=== PATIENT | female | born 1960 | race Caucasian/White ===

== ENCOUNTER 2016-12-14 19:07 | Emergency (ER) | payer MEDICAID ==
[~2016-12-14] VITALS: Ht 172.7 cm; Wt 110.1 kg
[~2016-12-14 19:07] MED LIST: AMLO5TAB2 PO; AMOX-291 PO; ASPI-650 PO; ATOR20TA PO; CARV6.2512 PO; CARV6.252 PO; GLIP2.5T3 PO; GLIP5TAB10 PO; HYDR-3341 PO; HYDR-3342 PO; HYDR-3343 PO; HYDR-882 PO; IBUP800T PO; LISI-170 PO; METH500T97 PO; NICO1PAT10 TD; OXYC5SOL8 PO; OXYC5TAB3 PO; POLY17PO5 PO; SERT50TA5 PO
[2016-12-14 19:19] VITALS: BP 171/103
[2016-12-14] MEDS ORDERED: KETOROLAC 60 MG/2 ML IM ONE (20:00)
[2016-12-14] MEDS ORDERED: KETOROLAC 30 MG/1 ML ONE (20:02)
== END 2016-12-14 20:14 | disposition home or self-care (01) ==
LOC: ED 20:08
DX: M54.9 Dorsalgia, unspecified (principal); G89.29 Other chronic pain; M19.90 Unspecified osteoarthritis, unspecified site; E11.9 Type 2 diabetes mellitus without complications
CPT/HCPCS: 93005; 96372; 99283; J1885

== ENCOUNTER 2017-01-17 20:28 | Emergency (ER) | payer MEDICAID ==
[~2017-01-17] VITALS: Ht 172.7 cm; Wt 110.4 kg
[2017-01-17] MEDS ORDERED: KETOROLAC 30 MG/1 ML ONE (20:56)
[2017-01-17] MEDS ORDERED: KETOROLAC 60 MG/2 ML IM ONE (21:00)
[2017-01-17 21:28] VITALS: BP 182/72
[2017-01-17] MEDS ORDERED: DULO60CA7 PO (21:28)
== END 2017-01-17 22:09 | disposition home or self-care (01) ==
LOC: ED 22:00
DX: M26.622 Arthralgia of left temporomandibular joint (principal); I10 Essential (primary) hypertension; E11.9 Type 2 diabetes mellitus without complications; M19.90 Unspecified osteoarthritis, unspecified site
CPT/HCPCS: 93005; 96372; 99283; J1885

== ENCOUNTER 2017-01-19 20:00 | Emergency (ER) | payer MEDICAID ==
[~2017-01-19] VITALS: Ht 172.7 cm; Wt 109.7 kg
[~2017-01-19 20:00] MED LIST changes: +DULO60CA7 PO
[2017-01-19 20:21] VITALS: BP 193/88
[2017-01-19] MEDS ORDERED: LORazepam 0.5MG TABLET ONE (20:30)
[2017-01-19] MEDS ORDERED: HYDROcodone/APAP 5/325 TABLET PO ONE (20:30)
[2017-01-19] MEDS ORDERED: HYDROcodone/APAP 5/325 TABLET ONE (20:30)
[2017-01-19] MEDS ORDERED: LORazepam 0.5MG TABLET PO ONE (20:30)
== END 2017-01-19 21:58 | disposition home or self-care (01) ==
LOC: ED 21:51
DX: M26.622 Arthralgia of left temporomandibular joint (principal); I10 Essential (primary) hypertension; E11.9 Type 2 diabetes mellitus without complications; F17.200 Nicotine dependence, unspecified, uncomplicated
CPT/HCPCS: 70100; 93005; 99284

== ENCOUNTER 2017-02-02 17:28 | Emergency (ER) | payer MEDICAID ==
[~2017-02-02] VITALS: Ht 172.7 cm; Wt 110.8 kg
[2017-02-02] MEDS ORDERED: HYDROcodone/APAP 5/325 TABLET ONE (18:39)
[2017-02-02] MEDS ORDERED: HYDROcodone/APAP 5/325 TABLET PO ONE (19:00)
[2017-02-02 19:24] VITALS: BP 162/90
== END 2017-02-02 19:26 | disposition home or self-care (01) ==
LOC: ED 18:16
DX: M26.622 Arthralgia of left temporomandibular joint (principal); I10 Essential (primary) hypertension; E11.9 Type 2 diabetes mellitus without complications
CPT/HCPCS: 99283

== ENCOUNTER 2017-02-16 15:32 | Emergency (ER) | payer MEDICAID ==
[~2017-02-16] VITALS: Ht 172.7 cm; Wt 108.0 kg
[2017-02-16 16:31] VITALS: BP 153/82
== END 2017-02-16 17:29 | disposition home or self-care (01) ==
LOC: ED 16:38
DX: S83.92XA Sprain of unspecified site of left knee, initial encounter (principal); I10 Essential (primary) hypertension; J02.9 Acute pharyngitis, unspecified; X58.XXXA Exposure to other specified factors, initial encounter; Y93.89 Activity, other specified; Y92.89 Other specified places as the place of occurrence of the external cause; Y99.8 Other external cause status
CPT/HCPCS: 99284

== ENCOUNTER 2019-11-23 14:29 | Outpatient (CLI) | payer MEDICAID ==
[~2019-11-23 14:29] MED LIST changes: +AMLO-150 PO; -AMLO5TAB2 PO; +HYDR-3653 PO; -HYDR-882 PO; +IBUP-1223 PO; -IBUP800T PO; +NICO-485 TD; -NICO1PAT10 TD; +SERT50TA28 PO; -SERT50TA5 PO
== END 2019-11-23 23:59 | disposition home or self-care (01) ==
LOC: RAD 14:29
PROVIDERS: ATTEND Nurse Practitioner
DX: M77.31 Calcaneal spur, right foot (principal)

== ENCOUNTER 2021-04-14 11:56 | Emergency (ER) | payer MEDICAID ==
[~2021-04-14] VITALS: Ht 170.2 cm; Wt 110.9 kg
[~2021-04-14 11:56] MED LIST changes: +ASPI-1026 PO; -ASPI-650 PO; -OXYC5TAB3 PO; +OXYC5TAB98 PO
--- NOTE | 2021-04-14 12:50 | NUR ---
PT AMBULATORY TO ROOM T1 W/ C/O L SIDE JAW PAIN STARTED 5 DAYS AGO. PT STATES HX TMJ. PT UNSURE IF SHE MAY HAVE EAR INFECTION. PT RESTING ON GURNEY. NADN. MONITORS APPLIED. CALL LIGHT IN REACH.
[2021-04-14] MEDS ORDERED: KETOROLAC 30 MG/1 ML IM ONE (13:00)
[2021-04-14] MEDS ORDERED: KETOROLAC 30 MG/1 ML ONE (13:39)
[2021-04-14 13:40] VITALS: BP 163/67
--- NOTE | 2021-04-14 13:41 | NUR ---
PT RESTING ON GURNEY. NADN. SANCHES.
== END 2021-04-14 13:58 | disposition home or self-care (01) ==
LOC: ED 12:37
DX: M26.622 Arthralgia of left temporomandibular joint (principal); R51.9 Headache, unspecified; I10 Essential (primary) hypertension; E11.9 Type 2 diabetes mellitus without complications; M19.90 Unspecified osteoarthritis, unspecified site
CPT/HCPCS: 93005; 96372; 99283; J1885

== ENCOUNTER 2021-06-03 10:01 | Emergency (ER) | payer MEDICAID ==
[~2021-06-03] VITALS: Ht 170.2 cm; Wt 111.1 kg
[2021-06-03 10:18] VITALS: BP 170/79
--- NOTE | 2021-06-03 12:35 | NUR ---
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 PT GIVEN MELECIO WRAP TO RT FOOT.
== END 2021-06-03 12:38 | disposition home or self-care (01) ==
LOC: ED 12:00
DX: G89.29 Other chronic pain (principal); M79.671 Pain in right foot; E11.9 Type 2 diabetes mellitus without complications; I10 Essential (primary) hypertension; M19.90 Unspecified osteoarthritis, unspecified site
CPT/HCPCS: 99283